=== PATIENT | female | born 1955 | race American Indian/Alaskan Native ===

== ENCOUNTER 2020-05-09 08:35 | Emergency (ER) | payer BC ==
[2020-05-09 08:43] VITALS: BP 168/86
--- NOTE | 2020-05-09 10:54 | Event Note ---
ED Screening Note Date of service: 05/09/20 Time: 10:53 ED Screening Note: 54-year-old -Citizen Of [place] female presents to the emergency room for right thumb pain x2 days. Patient reports that ibuprofen has not helped. Unsure of any injury. This initial assessment/diagnostic orders/clinical plan/treatment(s) is/are subject to change based on patients health status, clinical progression and re- assessment by fellow clinical providers in the ED. Further treatment and workup at subsequent clinical providers discretion. Patient/guardian urged not to elope from the ED as their condition may be serious if not clinically assessed and managed. Initial orders include:
--- NOTE | 2020-05-09 11:13 | XRay Report ---
RIGHT FINGER(S) 3 VIEW(S) INDICATION / CLINICAL INFORMATION: MAIN finger pain COMPARISON: None available. FINDINGS: BONES / JOINT(S): No acute fracture or subluxation. Moderate arthrosis is noted at the thumb IP joint . SOFT TISSUES: No significant abnormality. ADDITIONAL FINDINGS: None. Signer Name: Ej Holbrook MD Signed: 05/09/2020 11:09 AM Workstation Name: [id number]
--- NOTE | 2020-05-09 11:28 | Emergency Department Report ---
Upper Extremity - HPI Chief Complaint: Extremity Injury, Upper Stated Complaint: RT THUMB PAIN Time Seen by Provider: 05/09/20 11:23 Upper Extremity: Right Thumb Occurred When: 1 Day Severity: mild Symptoms: Yes Pain with Movement, Yes Swelling (Joint) Other History: 64-year-old -[place] female presents to the emergency room for right thumb pain that started yesterday denies any injury. Patient states that she has had pain in the past but that had improved and yesterday she started having pain. Patient reports that she did take an ibuprofen yesterday with no relief. ED Review of Systems ROS: Stated complaint: RT THUMB PAIN Other details as noted in HPI Comment: All other systems reviewed and negative ED Past Medical Hx - Past Medical History Previous Medical History?: Yes Hx Hypertension: Yes - Surgical History Past Surgical History?: No - Social History Smoking Status: Never Smoker Substance Use Type: Alcohol - Medications Home Medications: Home Medications Medication Instructions Recorded Confirmed Last Taken Type Meloxicam [Mobic] 7.5 mg PO QDAY #15 tablet 05/09/20 Unknown Rx Upper Extremity Exam - Exam General: Vital signs noted. No distress. Alert and acting appropriately. Head and Torso: No HEENT Abnormality, No Neck Tenderness, No Chest/Lungs Abnormality, No Abdominal Tenderness, No Back Tenderness Shoulder Exam: Yes Normal Range of Motion in Shoulder, No Shoulder Tenderness, No Clavicle Tenderness, No Shoulder Deformity, No AC Joint Tenderness Arm Exam: No Arm/Humerus Tenderness, No Arm Deformity Elbow: No Elbow Tenderness, No Normal Range of Motion in Elbow, No Elbow Deformity Wrist: Yes Normal ROM in Wrist, No Wrist Tenderness, No Wrist Deformity, No Snuffbox Tenderness, No Pain with Axial Thumb Compression Hand: Yes Hand Tenderness (Right thumb ip joint), Yes Normal ROM in Digit(s), No Hand Deformity, No Digit Tenderness, No Digit(s) Deformity, No Tendon Dysfunction CMS Exam: No Broken Skin, No Normal Distal Pulses, No Normal Capillary Refill, No Normal Distal Sensation ED Course Vital Signs 05/09/20 08:42 Temperature 97.8 F Pulse Rate 67 Respiratory 20 Rate Blood Pressure 168/86 O2 Sat by Pulse 100 Oximetry ED Medical Decision Making - Radiology Data Radiology results: report reviewed [facility] [address] [place] [address] XRay Report Signed Patient: DRE CORTEZ MR# : [id number] : 1955 Acct:[id number] Age/Sex: 64 / F ADM Date: 05/09/20 Loc: ED Attending Dr: Ordering Physician: MADI RODRIGUEZ Date of Service: 05/09/20 Procedure(s): XR finger(s) 2+V RT Accession Number(s): [id number] cc: MADI RODRIGUEZ Fluoro Time In Minutes: RIGHT FINGER(S) 3 VIEW(S) INDICATION / CLINICAL INFORMATION: MAIN finger pain COMPARISON: None available. FINDINGS: BONES / JOINT(S): No acute fracture or subluxation. Moderate arthrosis is noted at the thumb IP joint. SOFT TISSUES: No significant abnormality. ADDITIONAL FINDINGS: None. Signer Name: Ej Holbrook MD Signed: 05/09/2020 11:09 AM Workstation Name: [id number] Transcribed By: CH Dictated By: EJ HOLBROOK Electronically Authenticated By: EJ HOLBROOK Signed Date/Time: 05/09/20 110 DD/ 1107 TD/TT: - Medical Decision Making 64-year-old -[place] female presents to the emergency room for right thumb pain that started yesterday denies any injury. Patient states that she has had pain in the past but that had improved and yesterday she started having pain. Patient reports that she did take an ibuprofen yesterday with no relief. Critical care attestation.: If time is entered above; I have spent that time in minutes in the direct care of this critically ill patient, excluding procedure time. ED Disposition Clinical Impression: Arthritis of finger Disposition: DC-01 TO HOME OR SELFCARE Is pt being admited?: No Does the pt Need Aspirin: No Condition: Stable Instructions: Arthritis, [id number] Additional Instructions: X-ray is negative for any acute fractures. It does show moderate amount of arthritis at that joint. I recommend pain medication and to follow-up with your primary care provider. Prescriptions: Meloxicam [Mobic] 7.5 mg PO QDAY #15 tablet Referrals: PRIMARY CARE, [Primary Care Provider] - 3-5 Days Your, primary care provider [Other] - 3-5 Days
== END 2020-05-09 11:36 | disposition home or self-care (01) ==
LOC: ED 08:35
DX: M19.041 Primary osteoarthritis, right hand (principal); I10 Essential (primary) hypertension; Z79.899 Other long term (current) drug therapy